=== PATIENT | male | born 1980 | race Native Hawaiian/Other Pacific Islander ===

== ENCOUNTER 2017-03-30 08:02 | Day surgery (SDC) | payer OTHER ==
[2017-03-30 08:49] VITALS: BMI 21.2
[2017-03-30] MEDS ORDERED: Propofol 10 mg/ml Inj (20 ML) ONE (11:38)
[2017-03-30 12:29] VITALS: RESP 16
[2017-03-30 13:03] VITALS: BP 106/74; PULSE 60; TEMP 97.7; O2SAT 100
== END 2017-03-30 12:55 | disposition home or self-care (01) ==
LOC: C.ENDO 08:02
PROVIDERS: ATTEND Internal Medicine Gastroenterology
DX: R14.0 Abdominal distension (gaseous) (principal); K29.70 Gastritis, unspecified, without bleeding
CPT/HCPCS: 43239; 88305; 88313; 88342; J2001; J2704